=== PATIENT | female | born 1935 | race Caucasian/White ===

== ENCOUNTER → 2017-09-19 | Outpatient (CLI) | payer MEDICARE ==
[~2017-09-19] MED LIST: ASPI-1197 PO; BUPR-47 PO; CARB-38 PO; DOCU100C33 PO; FERR325C PO; IPRA3AMP4 IH; LEVO150T11 PO; LEVO500T89 PO; LOSA25TA21 PO; MAGN500C16 PO; METO-409 PO; POTA10TA14 PO; VIT1CAPS5 PO; WARF-57 PO; WARF2.5T85 PO
== END | disposition home or self-care (01) ==
LOC: OIH 15:58
PROVIDERS: ATTEND Internal Medicine
DX: M19.011 Primary osteoarthritis, right shoulder (principal); M24.811 Other specific joint derangements of right shoulder, not elsewhere classified
CPT/HCPCS: 73030